=== PATIENT | female | born 1990 | race Caucasian/White ===

== ENCOUNTER → 2018-01-07 00:22 | Outpatient (CLI) | payer MEDICAID, SELFPAY ==
--- NOTE | 2018-01-07 10:18 | DI.REPORT_ITS ---
SYMPTOM/DIAGNOSIS: 12/11/17 USG 93%, NEED F/U FOR DELIVERY POC, OB ULTRASOUND: There is a single intrauterine gestation. Estimated sonographic age is 36 weeks 5 days. The fetus is in the cephalic presentation. heart rate is 150 BPM anatomic evaluation was not performed during this examination. Estimated weight is 2868 grams which is the 56th percentile The placenta is posterior. Amniotic fluid index is 8.8 cm. visual amniotic fluid appears within normal limits. IMPRESSION: Single living intrauterine gestation. Estimated sonographic age is 36 weeks 5 days. Many abnormalities cannot be diagnosed. A normal exam does not exclude a congenital anomaly. Radiology No. [id number] LMP: Exam Date: [facility] wks on [facility] ([facility]) 02/04/18 Confirmed: HISTORY: S/D F/U FROM 12/11 US 93% ---- PREDICTED GESTATIONAL AGE NUMBER 36 -weeks with a range of 35- week to 37- weeks. 1 Determined by XX___1STUS___LMP___HISTORY Info. pertaining to fetus # PLACENTA PRESENTATION Grade II-III Cephalic__XX_ Anterior___Posterior___ Breech____ Right Left Transverse(head right___ Fundal___Low-lying___Previa___ Transverse(head left___ Varying BIOMETRY AMNIOTIC FLUID BPD: 91 mm 36 +6 weeks Normal HC: 331 mm 37 +5 weeks AC: 317 mm 35 +5 weeks FL: 71 mm 36 +2 weeks AMNIOTIC FLUID INDEX >26 WK CRL: - mm - weeks Cisterna Magna: - mm CI: 81 RUQ:__2.0____LUQ___1.7 Cerebellum: - cm EFW: 2868 grams 56% Percentile RLQ:__1.6____LLQ___3.0____ Total:__8.8 CM cms Composite AGE= 36 +5 wks EDC by US__01/30/18 BIOPHYSICAL PROFILE ANATOMY IDENTIFIED SCORE 0/2 Heart: 4-Chamber___Rate:BPM__150 BPM___ LVOT: RVOT: Amniotic Fluid(>2cms)____ Stomach: Kidneys: Respirations (>30 secs) Bladder: Post. Fossa: Body Flex/Extension 3 vessel cord: Ventricles: cord insertion: Lips:____ Extremity Flex/Extension spinal morphology: Nose: Total Score= Palate: NS=not seen
== END ==
PROVIDERS: Visit Provider Advanced Practice Midwife
DX: O26.843 Uterine size-date discrepancy, third trimester (principal); Z36.2 Encounter for other antenatal screening follow-up
CPT/HCPCS: 76816

== ENCOUNTER → 2018-01-07 13:16 | Outpatient (REF) | payer MEDICAID, SELFPAY | LOC: LBN 13:16 | PROVIDERS: Visit Provider Advanced Practice Midwife | DX: Z34.83 Encounter for supervision of other normal pregnancy, third trimester (principal); Z36.85 Encounter for antenatal screening for Streptococcus B | CPT/HCPCS: 87081 ==

== ENCOUNTER → 2018-01-14 11:08 | Outpatient (REF) | payer MEDICAID, SELFPAY | LOC: LBN 11:08 | PROVIDERS: Visit Provider Advanced Practice Midwife | DX: Z11.3 Encounter for screening for infections with a predominantly sexual mode of transmission (principal) | CPT/HCPCS: 87480; 87510; 87660 ==

== ENCOUNTER 2018-03-06 12:43 | Outpatient (REF) | payer MEDICAID, SELFPAY ==
[2018-03-09 14:53] LABS: Chlamydia Result Negative; GC Result Negative; Specimen Description CERVIX
== END 2018-03-06 13:03 ==
LOC: LBN 12:43
PROVIDERS: Visit Provider Advanced Practice Midwife
DX: Z11.3 Encounter for screening for infections with a predominantly sexual mode of transmission (principal)
CPT/HCPCS: 87491; 87591

== ENCOUNTER 2018-06-17 00:12 | Outpatient (CLI) | payer SELFPAY ==
--- NOTE | 2018-06-17 13:45 | DI.US_ITS ---
SYMPTOMS/DIAGNOSIS: PELVIC PAIN WITH IUD, R10.2, ENCOUNTER FOR ROUTINE CHECKING OF INTRAUTERINE CONTRACEPTIVE DEVICE, Z30.174 PELVIC ULTRASOUND: Transabdominal and transvaginal examination was performed. The uterus measures 8.6 cm long x 4.7 cm AP x 4.6 cm transverse. The endometrial stripe is within normal limits at 1.1 cm. There is an intrauterine device in good position within the endometrium. No myometrial mass is present. Both ovaries were visualized. They are normal in size and appearance. No evidence of torsion or ovarian mass is seen. No free pelvic fluid or hydronephrosis is identified. IMPRESSION: Intrauterine device in good position. Otherwise unremarkable pelvic ultrasound.
== END 2018-06-17 00:32 ==
PROVIDERS: Visit Provider Nurse Practitioner Women's Health
DX: R10.2 Pelvic and perineal pain (principal); Z30.431 Encounter for routine checking of intrauterine contraceptive device
CPT/HCPCS: 76830; 76856

== ENCOUNTER 2018-09-07 17:39 | Emergency (ER) | payer SELFPAY ==
[2018-09-07 17:44] VITALS: BP 144/82; PULSE 100; RESP 18; TEMP 36.6; O2SAT 100
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
[2018-09-07] MEDS: Clindamycin 150 MG CAP 450 MG PO (18:21)
== END 2018-09-07 18:30 | disposition home or self-care (01) ==
PROVIDERS: Emergency Provider Student in an Organized Health Care Education/Training Program
DX: L03.314 Cellulitis of groin (principal)
CPT/HCPCS: 36416; 82962; 99283

== ENCOUNTER 2019-04-14 02:38 | Outpatient (CLI) | payer SELFPAY ==
[2019-04-14 10:01] LABS: TSH (W/Ref FT4) 0.95 uIU/mL (0.36-3.74)
== END 2019-04-14 02:58 ==
DX: F41.9 Anxiety disorder, unspecified (principal); G47.00 Insomnia, unspecified; R53.83 Other fatigue; R63.8 Other symptoms and signs concerning food and fluid intake
CPT/HCPCS: 36415; 84443

== ENCOUNTER 2019-10-18 11:39 | Outpatient (REF) | payer SELFPAY ==
[2019-10-19 20:59] LABS: COVID-19 RT-PCR UVMMC Result Negative (Negative)
== END 2019-10-18 11:59 ==
LOC: LBN 11:39
PROVIDERS: Visit Provider Nurse Practitioner Adult Health
DX: Z20.828 Contact with and (suspected) exposure to other viral communicable diseases (principal)
CPT/HCPCS: U0003

== ENCOUNTER 2020-02-09 12:45 | Outpatient (REF) | payer SELFPAY | END 2020-02-09 13:05 | LOC: LBN 12:45 | PROVIDERS: Visit Provider Physician Assistant | DX: L02.211 Cutaneous abscess of abdominal wall (principal) | CPT/HCPCS: 87070; 87205 ==

== ENCOUNTER 2021-02-09 20:28 | Outpatient (REF) | payer SELFPAY ==
[2021-02-12 14:44] LABS: COVID-19 RT-PCR UVMMC Result Negative (Negative)
== END 2021-02-09 20:29 | disposition home or self-care (01) ==
LOC: LBN 20:28
PROVIDERS: Visit Provider Nurse Practitioner Family
DX: J02.9 Acute pharyngitis, unspecified (principal); J06.9 Acute upper respiratory infection, unspecified; Z20.822 Contact with and (suspected) exposure to COVID-19
CPT/HCPCS: U0003; 87070

== ENCOUNTER 2023-07-07 15:21 | Outpatient (REF) | payer BC, SELFPAY ==
--- NOTE | 2023-07-07 15:10 | PAPFT_PTH ---
PATIENT: Juliana Rizvi LOC: N U#:[id number] AGE/SX: 32/F ROOM: RE07/07/[address]: Myrna Diaz DO : 1990 BED: DIS: 07/07/2023 SPEC #: [id number] RECD: 07/07/23 18:26 STATUS: NATALIANeisha REQ #: [id number] GINA: 07/07/23 15:[address]: Myrna Diaz DEPT: [facility] Cytology RECD BY: Kaylan Lyle ENTERED: 07/07/23 18:27 SP TYPE: PAPFT OTHR DR: Jairo Lowe DNP Tissues: 1 - CX/ENDOCX FOR PAP SMEARS Procedures: PAP THIN PREP/UVM Screening HPV DNA PROBE Comments: [id number]
== END 2023-07-07 15:22 | disposition home or self-care (01) ==
LOC: LBN 15:21
PROVIDERS: PCP Nurse Practitioner Family; Visit Provider Obstetrics & Gynecology
DX: Z12.4 Encounter for screening for malignant neoplasm of cervix (principal); Z11.51 Encounter for screening for human papillomavirus (HPV)
CPT/HCPCS: 88142; 87624

== ENCOUNTER 2023-12-12 02:38 | Outpatient (CLI) | payer BC, SELFPAY ==
[2023-12-12 09:32] LABS: ALT 30 U/L (14-59); AST 19 U/L (15-37); Albumin 3.8 g/dL (3.4-5.0); Alkaline Phosphatase 65 U/L (46-116); BUN 10 mg/dL (7-18); Bilirubin, Total 0.56 mg/dL (0.2-1.0); CREATININE 0.9 mg/dL (0.55-1.02); Calculated LDL 95 mg/dL (<100); Chloride 103 mmol/L (98-107); Cholesterol 146 mg/dL (<200); Glucose 97 mg/dL (74-106); HDL Cholesterol 31 mg/dL (40-60); Potassium 3.8 mmol/L (3.5-5.1); Sodium 141 mmol/L (136-145); TSH (W/Ref FT4) 1.61 uIU/mL (0.36-3.74); Total Protein 8.1 g/dL (6.4-8.2); Triglyceride 104 mg/dL (<150)
== END 2023-12-12 02:39 | disposition home or self-care (01) ==
LOC: LBO 02:38
PROVIDERS: PCP Nurse Practitioner Family; Visit Provider Nurse Practitioner Family
DX: Z13.220 Encounter for screening for lipoid disorders (principal); R63.8 Other symptoms and signs concerning food and fluid intake; F39 Unspecified mood [affective] disorder
CPT/HCPCS: 36415; 80053; 80061; 84443

== ENCOUNTER 2023-12-13 08:58 | Emergency (ER) | payer BC, SELFPAY ==
[2023-12-13 09:01] VITALS: BP 124/77; PULSE 78; RESP 20; TEMP 36.5; O2SAT 99
[2023-12-13 09:05] VITALS: BP 124/77; PULSE 78; RESP 20; TEMP 36.5; O2SAT 99
[2023-12-13] MEDS: MORPHine 10 MG/ML VIAL 6 MG IVP (09:31)
[2023-12-13 09:32] LABS: Abs Immature Grans 0.05 10^3/uL (0.0-0.06); Absolute Basophil Count 0.07 10^3/uL (0.0-0.2); Absolute Eosinophil Count 0.12 10^3/uL (0.0-0.7); Absolute Monocyte Count 0.65 10^3/uL (0.1-0.8); Basophils % 0.5 %; Eosinophils % 0.9 %; HCT 43.8 % (36.0-46.0); HGB 14.6 g/dL (11.2-15.7); Immature Grans % 0.4 %; Lymphocytes % 19.1 %; MCH 28.6 pg (27.0-33.0); MCHC 33.3 % (32.0-36.0); MCV 86 fL (80-95); MPV 11.1 fL (8.0-11.0); Monocytes % 4.8 %; Neutrophils % 74.3 %; Platelet Count 290 10^3/uL (130-400); RBC 5.11 10^6/uL (3.93-5.22); RDW 13.2 % (11.7-14.6); RDW-SD 41.1 fL; WBC 13.62 10^3/uL (4.4-10.8)
[2023-12-13 09:47] LABS: ALT 29 U/L (14-59); AST 18 U/L (15-37); Albumin 3.7 g/dL (3.4-5.0); Alkaline Phosphatase 66 U/L (46-116); Anion Gap 10.6 mmol/L (3-11); BUN 8 mg/dL (7-18); Bilirubin, Total 0.67 mg/dL (0.2-1.0); CO2 27.4 mmol/L (21.0-32.0); CREATININE 0.9 mg/dL (0.55-1.02); Calcium 8.7 mg/dL (8.5-10.1); Chloride 103 mmol/L (98-107); Glucose 112 mg/dL (74-106); Lipase 23 U/L (16-77); Potassium 3.5 mmol/L (3.5-5.1); Sodium 141 mmol/L (136-145); Total Protein 7.9 g/dL (6.4-8.2)
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
[2023-12-13 10:08] LABS: Bilirubin Small (Negative); Blood Negative (Negative); Clarity Clear (Clear); Glucose Negative (Negative); Ketones 15 mg/dL (Negative); Leukocyte Esterase Negative (Negative); Nitrite Negative (Negative); Specific Gravity 1.025 (1.005-1.025)
--- NOTE | 2023-12-13 10:10 | DI.RAD_ITS ---
Exam(s) XR CHEST 2V PA LATERAL EXAM: XR CHEST 2V PA LATERAL CLINICAL HISTORY: RUQ pain. TECHNIQUE: 2D digital imaging was performed. COMPARISON: No exams were available for comparison FINDINGS: 2 views: Heart size is normal. The mediastinum is not widened. Lungs are clear. No infiltrates nor pleural effusions. IMPRESSION: No acute pulmonary findings. DATA REPOSITORY: RADIATION DOSE DELIVERED:
[2023-12-13 10:16] LABS: Absolute Neutrophil Count 10.12 10^3/uL (1.2-6.7)
--- NOTE | 2023-12-13 10:19 | DI.CT_ITS ---
Exam(s) CT ABDOMEN PELVIS W EXAM: CT ABDOMEN PELVIS W CLINICAL HISTORY: RUQ pain, guarding. TECHNIQUE: Imaging Protocol: Axial computed tomography images with coronal and sagittal reformatted images were created and reviewed CONTRAST MATERIAL: Intravenous: Omnipaque-350 100cc Oral: None COMPARISON: CR,XR XR CHEST 2V PA LATERAL from 12/13/2023 FINDINGS: VISUALIZED LUNG BASES: No nodules nor pleural effusions evident. ABDOMEN: There is no ascites. LIVER: There is a very large cyst in the right hepatic lobe, this measuring 16 cm AP by 14 cm wide by 13.5 cm craniocaudal. This accounts for the mild elevation of the right hemidiaphragm as seen on ch est x-ray. This has appearance of a simple benign cysts with no solid mural nodules nor thick undergraduate intern al septations. There appears to be a single thin internal septation without significant nodularity. No associated calcification. No other significant focal findings in the right lobe and no findings in the left lobe of the liver. No dilated intrahepatic ducts. GALLBLADDER/BILIARY: Multiple gallstones are noted. These are in the gallbladder neck region. Gallb ladder is not distended. No bladder wall appears slightly edematous. CBD is not dilated. No radiop aque calculi seen within the CBD. PANCREAS: No evidence of pancreatic mass nor dilatation of the pancreatic duct. SPLEEN: Spleen is not enlarged. No obvious intrasplenic lesions. Splenic and portal veins are paten t. ADRENALS: There are no significant adrenal masses. KIDNEYS:Left kidney unremarkable. There is a benign cyst in the medial aspect of the right kidney wh ich measures 2.2 x 1.6 cm and does not require further investigation. No solid renal masses. No aries culi nor hydronephrosis.. ABDOMINAL AORTA: Abdominal aorta is not enlarged. LYMPH NODES:There is no retroperitoneal nor paraaortic adenopathy. ABDOMINAL WALL: No evidence of significant anterior abdominal wall nor inguinal hernia. GI: There is no evidence of bowel obstruction, free air, nor abscess. There is diverticulosis the left side of the colon the sigmoid but no evidence of obvious acute diver ticulitis. PELVIS: GI: No evidence of appendicitis.No evidence of sigmoid diverticulitis. LYMPH NODES: There is no intrapelvic nor inguinal adenopathy. REPRODUCTIVE: There is an IUD in the endometrial canal.. There is a cyst in the right ovary measurin g 2 x 1.3 cm-probably follicular. No dominant cyst in the opposite-left ovary. Both ovaries exhibit age-appropriate size and there are no extraovarian adnexal masses nor free fluid in the pelvis. URINARY BLADDER: No calculi nor obvious masses evident OSSEOUS: No fractures and no significant osseous lesions. There is increased density on the iliac side of both sacroiliac joints; probable sacroiliitis. There is no ankylosis of the SI joints. There is anterolisthesis of L5 upon S1 due to bilateral pars defe cts at L5 level, this resulting in 1 cm anterior slippage of L5 upon S1 and there is also advanced di sc space narrowing at this level. L4-5 levels above the exhibit listhesis nor disc space narrowing. There are no significant osseous lesions. IMPRESSION: 1. Cholelithiasis. There also appears to be mild gallbladder wall edema-possible cholecystitis. Rec ommend ultrasound. Correlation with clinical findings recommended. The CBD is not dilated. 2. Large cyst in the right hepatic lobe measuring 16 x 14 x 13.5 cm. This contains a single thin maryann ign-appearing septum. There is no nodularity of the septum nor of the huang of this benign-appearing but huge cyst. There are no focal findings in the left hepatic lobe. No dilated intrahepatic ducts . 3. There is diverticulosis of the left side of the colon but no evidence of acute diverticulitis. 4. Other findings as above. First read by [facility] Final report called by myself to ER physician 12/13/2023 4:40 p.m. RADIATION DOSE DELIVERED: 1,664.33mGy.cm Total DLP DATA REPOSITORY: All CT scans at this facility are submitted to the National Radiology Data Registry (NRDR) Dose Index Registry (DIR) with the [employer] (ACR). RADIATION OPTIMIZATION: All CT scans at this facility use at least one of these dose optimization te chniques: automated exposure control; mA and/or kV adjustment per patient size (includes targeted exa ms where dose is matched to clinical indication); or iterative reconstruction.
--- NOTE | 2023-12-13 10:21 | DI.VRAD_ITS ---
PROCEDURE INFORMATION: Exam: XR Chest Exam date and time: 12/13/2023 10:02 AM Age: 33 years old Clinical indication: Other: Ruq pain TECHNIQUE: Imaging protocol: Radiologic exam of the chest. Views: 2 views. COMPARISON: No relevant prior studies available. FINDINGS: Lungs: Unremarkable. No consolidation. Pleural spaces: Unremarkable. No pleural effusion. No pneumothorax. Heart/Mediastinum: Unremarkable. No cardiomegaly. Bones/joints: Unremarkable. IMPRESSION: No acute findings. Dictated and Authenticated by: Dakotah Shannon MD. Ordering:VIOLA Kimbrough MD
[2023-12-13] MEDS: Normal Saline - Diluent 50 ML VIAL IJ (10:23)
[2023-12-13] MEDS: Omnipaque 350 MG/ML 100 ML BTL IJ (10:24)
--- NOTE | 2023-12-13 11:03 | DI.VRAD_ITS ---
PROCEDURE INFORMATION: Exam: CT Abdomen And Pelvis With Contrast Exam date and time: 12/13/2023 10:10 AM Age: 33 years old Clinical indication: Other: Ruq pain, guarding TECHNIQUE: Imaging protocol: Computed tomography of the abdomen and pelvis with contrast. Contrast material: OMNIPAQUE 350; Contrast volume: 100 ml; Contrast route: INTRAVENOUS (IV); COMPARISON: US PELVIS TRANSVAGINAL 06/17/2018 4:43 PM FINDINGS: Liver: The right lobe has a large cysts measuring 14.8 x 16.2 x 13.3 cm. No solid liver lesions. Gallbladder and biliary ducts: Gallbladder: Dependent calculi. No wall thickening or pericholecystic fluid. Pancreas: The pancreas is normal. Spleen: The spleen is normal. Adrenal glands: The adrenal glands are normal. Kidneys and ureters: Simple appearing 2.4 cm cyst medial portion of the right kidney. No follow up imaging is recommended. Cortex enhances uniformly. No hydronephrosis or solid masses. Stomach and bowel: No obstruction or wall thickening. There are a few colonic diverticula without inflammatory changes. Appendix: A normal appendix is identified. Intraperitoneal space: Unremarkable. No free air. No significant fluid collection. Vasculature: Unremarkable. No abdominal aortic aneurysm. Lymph nodes: Unremarkable. No enlarged lymph nodes. Urinary bladder: Unremarkable as visualized. Reproductive: Unremarkable as visualized. T-shaped intrauterine device within the endometrial cavity. Bones/joints: No fracture. Moderate-severe L5-S1 disc space narrowing with a grade 2 anterolisthesis secondary to bilateral spondylolysis. There is severe neural foraminal narrowing at this level. Soft tissues: Unremarkable. IMPRESSION: 1. No acute findings. 2. Large simple appearing hepatic cyst. 3. Uncomplicated cholelithiasis. 4. Uncomplicated colonic diverticulosis. Dictated and Authenticated by: Dakotah Shannon MD. Ordering:VIOLA Kimbrough MD
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
[2023-12-13] MEDS: MORPHine 10 MG/ML VIAL 8 MG IVP (11:31)
[2023-12-13] MEDS: Normal Saline 1,000 ML 1000 ML IV (11:31)
[2023-12-13 13:25] VITALS: BP 115/80; PULSE 80; RESP 16; O2SAT 97
[2023-12-13 13:26] VITALS: BP 115/80; PULSE 80; RESP 16; TEMP 36.5; O2SAT 97
--- NOTE | 2023-12-15 08:51 | NUR.NOTE ---
[place] [facility] [place]
== END 2023-12-13 13:37 | disposition home or self-care (01) ==
PROVIDERS: Emergency Provider Physician Assistant; PCP Nurse Practitioner Family
DX: R10.11 Right upper quadrant pain (principal); K76.89 Other specified diseases of liver; N83.201 Unspecified ovarian cyst, right side; F17.210 Nicotine dependence, cigarettes, uncomplicated
CPT/HCPCS: 00123; 80053; 83690; 96361; 96374; 96376; 99285; 71046; 74177; 81003; 85025; 99284; J2270; J3490